=== PATIENT | female | born 1955 | race Caucasian/White ===

== ENCOUNTER 2017-07-22 07:28 | Day surgery (SDC) | payer BC ==
[2017-07-21 11:22] VITALS: BMI 37.8
[~2017-07-22 07:28] MED LIST: Cyclopentolate 1% Opth Drop 2 ML BOT FS SCH; Fluorouracil 100 MG, Enoxaparin Sodium 25 MG, EPINEPHrine 0.3 MG in Ophthalmic Irrigati... IVPB SCH; Phenylephrine 2.5% Ophth Soln 5 ML BOT FS SCH
[2017-07-22] MEDS ORDERED: Cyclopentolate 1% Opth Drop 2 ML BOT ONE (08:10)
[2017-07-22] MEDS ORDERED: Phenylephrine 2.5% Ophth Soln 5 ML BOT ONE (08:11)
[2017-07-22] MEDS ORDERED: Midazolam HCl 2 mg/2 ml Vial ONE (09:07)
[2017-07-22] MEDS ORDERED: Lidocaine 2% 10 ML INJ ONE (09:07)
[2017-07-22] MEDS ORDERED: PROPOFOL 20 ML ONE (09:07)
[2017-07-22] MEDS ORDERED: Fentanyl 100 MCG/2 ML VIAL ONE (09:07)
--- NOTE | 2017-07-22 12:45 | OP ---
DATE OF PROCEDURE: 07/22/2017 PREOPERATIVE DIAGNOSIS: Macular hole, epiretinal membrane, right eye. POSTOPERATIVE DIAGNOSIS: Macular hole, epiretinal membrane, right eye. PROCEDURE: Pars plana vitrectomy, membrane peel, right eye. SURGEON: Dr. Robb Calvillo ANESTHESIA: Local with monitored anesthesia care. PROCEDURE IN DETAIL: The patient was identified in the preoperative holding area. Appropriate infor med consent for the planned surgical procedure on the right eye been obtained. The patient was trans ported to the operative suite where appropriate cardiopulmonary monitoring was established. Local an esthesia was obtained using retrobulbar and modified Van Lint lid block using 50/50 mixture of 4% lid ocaine, 0.75% bupivacaine. The patient was prepped and draped in the usual sterile manner for ophtha lmic surgery on the right eye. Lid speculum was placed in the right eye. The 25-gauge trocars were placed in conjunctiva and sclera supratemporally, inferotemporally, and supranasally. Infusion line was placed inferotemporally. Light pipe and vitreous cutter were inserted into the eye. Core vitrec sapphire was performed using Indocyanine green dye was infused on the posterior pole x1, identifying the epiretinal and internal limiting membrane. This was elevated using a membrane scraper and peeled acr oss the macula using end-gripping forceps. Membranes were noted into the far periphery temporally. Complete air fluid exchange was performed with 10 minutes being allowed for fluid to drain posteriorl y. Prophylactic laser was placed behind the sclerotomy sites. Then 28% sulfur hexafluoride gas was infused into the eye. Trocars were removed and eye was noted to retain pressure well. Retrobulbar K enalog and subconjunctival Ancef were placed. Atropine and antibiotic ointment were placed, and the eye was patched and shielded. The patient was taken to the postoperative recovery unit in good condi tion having suffered no immediate perioperative complications. DISCHARGE INSTRUCTIONS: The patient was instructed to keep patch and shield on, avoid lifting or rosa ding, and follow up in the morning with Dr. Calvillo.
[2017-07-22] MEDS ORDERED: Lidocaine 1% PF 5 ML VIAL ONE (16:38)
[2017-07-22] MEDS ORDERED: PROPOFOL 200 MG/20 ML VIAL ONE (16:38)
== END 2017-07-22 11:30 | disposition home or self-care (01) ==
LOC: SDC 07:28
PROVIDERS: ATTEND Ophthalmology Retina Specialist
PROC: 08T43ZZ Resection of Right Vitreous, Percutaneous Approach (ICD-10-PCS; principal; 2017-07-22)
PROC: 3E0C3GC Introduction of Other Therapeutic Substance into Eye, Percutaneous Approach (ICD-10-PCS; principal; 2017-07-22)
PROC: 08NE3ZZ Release Right Retina, Percutaneous Approach (ICD-10-PCS; principal; 2017-07-22)
DX: H35.341 Macular cyst, hole, or pseudohole, right eye (principal); Z79.84 Long term (current) use of oral hypoglycemic drugs; Z79.899 Other long term (current) drug therapy; Z88.0 Allergy status to penicillin; Z88.1 Allergy status to other antibiotic agents; Z88.5 Allergy status to narcotic agent; Z88.8 Allergy status to other drugs, medicaments and biological substances
CPT/HCPCS: 67025; J0171; J1650; J2001; J2250; J2704; J3010; J9190